=== PATIENT | female | born 1975 | race African-American/Black ===

== ENCOUNTER 2020-08-19 13:36 | Inpatient (IN) | payer OTHER ==
[2020-08-19] VITALS (7 sets, daily range): BP systolic 113–144; BP diastolic 83–98
[~2020-08-19] VITALS: Ht 177.8 cm; Wt 108.9 kg
[2020-08-19] MEDS: MORPHINE SULFATE INJ 2 MG/ML SYR IV PRN ×2 (14:52→18:39)
[2020-08-19] MEDS: SODIUM CHLORIDE 0.9% 1000ML 1,000 ML IV SCH (14:52)
[2020-08-19] MEDS: ONDANSETRON HCL INJ 2MG/ML 2ML 2 MG/ML VIAL IV PRN (14:52)
[2020-08-19] MEDS ORDERED: AMLODIPINE BESY10 MG PO (15:12)
[2020-08-19] MEDS ORDERED: ATENOLOL50 MG PO (15:12)
[2020-08-19] MEDS ORDERED: CELEXA20 MG PO (15:12)
[2020-08-19] MEDS ORDERED: CLONIDINE HCL0.1 MG PO (15:12)
[2020-08-19] MEDS ORDERED: POTASSIUM CHLORIDE 20 MEQ TAB CR PO PRN (15:15)
[2020-08-19] MEDS: PIPERACILLIN/TAZOBAC 3.375 GM in SODIUM CHLORIDE 0.9% 50ML 50 ML IV SCH (16:41)
[2020-08-19] MEDS ORDERED: PIPER-TAZ 3.375 GM 50 ML IV SCH (18:00)
[2020-08-19] MEDS ORDERED: AMLODIPINE BESYLATE 10 MG TAB PO SCH ×2 (21:00)
[2020-08-19] MEDS: AMLODIPINE BESYLATE 5 MG TAB PO SCH (22:01)
[2020-08-19] MEDS: CITALOPRAM HYDROBROMIDE 20 MG TAB PO SCH (22:01)
[2020-08-19] MEDS: CLONIDINE HCL 0.1 MG TAB PO SCH (22:01)
[2020-08-19] MEDS: ATENOLOL 50 MG TAB PO SCH (22:01)
[2020-08-19] MEDS: HEPARIN SOD (PORCINE) 5,000 UNIT/ML VIAL SC SCH (22:21)
[2020-08-20] VITALS: BP 123/77
[2020-08-20] MEDS: ONDANSETRON HCL INJ 2MG/ML 2ML 2 MG/ML VIAL IV PRN ×4 (00:08→23:11)
[2020-08-20] MEDS: SODIUM CHLORIDE 0.9% 1000ML 1,000 ML IV SCH ×2 (00:08→16:56)
[2020-08-20] MEDS: PIPERACILLIN/TAZOBAC 3.375 GM in SODIUM CHLORIDE 0.9% 50ML 50 ML IV SCH ×5 (00:08→23:56)
[2020-08-20] MEDS: MORPHINE SULFATE INJ 2 MG/ML SYR IV PRN ×4 (00:08→23:11)
[2020-08-20 04:00] VITALS: BP 125/81
[2020-08-20 05:31] LABS: BASOPHILS % 0.2 % (0.0-1.0); EOSINOPHILS # (AUTO) 0.1 (0.0-0.4); EOSINOPHILS % 0.6 % (0.0-6.0); HEMATOCRIT 34.4 % (34.2-44.1); HEMOGLOBIN 10.8 g/dL (12.0-16.0); LYMPHOCYTES # (AUTO) 1.4 (1.0-3.2); LYMPHOCYTES % 13.1 % (18.0-39.1); MEAN CORPUSCULAR HEMOGLOBIN 23.9 pg (28-32); MEAN CORPUSCULAR HGB CONC 31.4 g/dL (31-35); MEAN CORPUSCULAR VOLUME 76.3 fL (81-99); MONOCYTES # (AUTO) 1.7 (0.2-0.8); MONOCYTES % 15.6 % (4.4-11.3); NEUTROPHILS # (AUTO) 7.5 (2.1-6.9); PLATELET COUNT 397 x10e3/uL (140-360); RED BLOOD COUNT 4.51 x10e6/uL (3.6-5.1); RED CELL DISTRIBUTION WIDTH 14.4 % (11.7-14.4)
[2020-08-20 05:39] LABS: INR 1.15; PROTHROMBIN TIME 15.4 seconds (11.9-14.5)
[2020-08-20 05:49] LABS: ALANINE AMINOTRANSFERASE 16 IU/L (0-55); ALBUMIN 2.4 g/dL (3.5-5.0); ALBUMIN/GLOBULIN RATIO 0.5 (0.8-2.0); ALKALINE PHOSPHATASE 135 IU/L (40-150); ANION GAP 16.8 mmol/L (8-16); BLOOD UREA NITROGEN 11 mg/dL (7-26); BUN/CREATININE RATIO 11 (6-25); CALCIUM 7.9 mg/dL (8.4-10.2); CARBON DIOXIDE 25 mmol/L (22-29); CHLORIDE 103 mmol/L (98-107); CREATININE, SERUM 1.04 mg/dL (0.57-1.11); EST GLOMERULAR FILTRATION RATE > 60 ML/MIN (60-); GLUCOSE 114 mg/dL (74-118); SODIUM 142 mmol/L (136-145)
[2020-08-20 05:52] LABS: POTASSIUM 2.8 mmol/L (3.5-5.1)
[2020-08-20 07:46] LABS: BAND NEUTROPHILS % (MANUAL) 2 %; LYMPHOCYTES % (MANUAL) 12 % (19-48); MONOCYTES % (MANUAL) 18 % (3.4-9.0); NEUTROPHILS % (MANUAL) 68 % (40-74); PLATELET ESTIMATE ADEQUATE
[2020-08-20 07:47] LABS: PLATELET MORPHOLOGY COMMENT NORMAL; RBC MORPHOLOGY COMMENT NORMAL
[2020-08-20] MEDS: HEPARIN SOD (PORCINE) 5,000 UNIT/ML VIAL SC SCH ×2 (08:02→22:41)
[2020-08-20 08:16] VITALS: BP 122/98
[2020-08-20 08:18] VITALS: BP 122/98
[2020-08-20] MEDS ORDERED: POTASSIUM CHLORIDE 20 MEQ TAB CR PO ONE (10:15)
[2020-08-20] MEDS ORDERED: KCL 20 MEQ PACKET/ ORAL SOLN PO ONE (10:15)
[2020-08-20 16:46] VITALS: BP 122/87
[2020-08-20] MEDS: DOCUSATE SODIUM LIQD 100 MG/10 ML UDC NG SCH (16:56)
[2020-08-20] MEDS ORDERED: BISACODYL 5 MG TAB EC PO ONE ×2 (19:20→20:00)
[2020-08-20 20:00] VITALS: BP 141/90
[2020-08-20] MEDS ORDERED: CITRATE OF MAGNESIA 300ML BOTTLE PO ONE (22:00)
[2020-08-20] MEDS: CITALOPRAM HYDROBROMIDE 20 MG TAB PO SCH (22:29)
[2020-08-20] MEDS: CLONIDINE HCL 0.1 MG TAB PO SCH (22:29)
[2020-08-20] MEDS: AMLODIPINE BESYLATE 5 MG TAB PO SCH (22:29)
[2020-08-20] MEDS: ATENOLOL 50 MG TAB PO SCH (22:29)
[2020-08-20] MEDS ORDERED: BISACODYL 10 MG SUPP PR ONE (23:30)
[2020-08-21] VITALS (10 sets, daily range): BP systolic 124–152; BP diastolic 81–99
[2020-08-21] MEDS ORDERED: MAGNESIUM HYDROXIDE 30 ML UDC PO ONE (01:00)
[2020-08-21] MEDS: MORPHINE SULFATE INJ 2 MG/ML SYR IV PRN ×3 (05:15→19:50)
[2020-08-21] MEDS: ONDANSETRON HCL INJ 2MG/ML 2ML 2 MG/ML VIAL IV PRN ×2 (05:15→19:50)
[2020-08-21 05:24] LABS: BASOPHILS % 0.3 % (0.0-1.0); EOSINOPHILS % 0.3 % (0.0-6.0); HEMATOCRIT 35.3 % (34.2-44.1); HEMOGLOBIN 11.1 g/dL (12.0-16.0); LYMPHOCYTES # (AUTO) 1.3 (1.0-3.2); LYMPHOCYTES % 10.6 % (18.0-39.1); MEAN CORPUSCULAR HEMOGLOBIN 23.7 pg (28-32); MEAN CORPUSCULAR HGB CONC 31.4 g/dL (31-35); MEAN CORPUSCULAR VOLUME 75.3 fL (81-99); MONOCYTES # (AUTO) 1.3 (0.2-0.8); MONOCYTES % 10.5 % (4.4-11.3); NEUTROPHILS # (AUTO) 9.4 (2.1-6.9); NEUTROPHILS % 77.6 % (38.7-80.0); PLATELET COUNT 495 x10e3/uL (140-360); RED BLOOD COUNT 4.69 x10e6/uL (3.6-5.1); RED CELL DISTRIBUTION WIDTH 14.5 % (11.7-14.4)
[2020-08-21] MEDS: SODIUM CHLORIDE 0.9% 1000ML 1,000 ML IV SCH (06:00)
[2020-08-21] MEDS: PIPERACILLIN/TAZOBAC 3.375 GM in SODIUM CHLORIDE 0.9% 50ML 50 ML IV SCH ×3 (06:00→19:29)
[2020-08-21 06:07] LABS: ALANINE AMINOTRANSFERASE 13 IU/L (0-55); ALBUMIN 2.5 g/dL (3.5-5.0); ALBUMIN/GLOBULIN RATIO 0.5 (0.8-2.0); ALKALINE PHOSPHATASE 132 IU/L (40-150); ANION GAP 17.4 mmol/L (8-16); BLOOD UREA NITROGEN 10 mg/dL (7-26); BUN/CREATININE RATIO 10 (6-25); CALCIUM 8.3 mg/dL (8.4-10.2); CARBON DIOXIDE 24 mmol/L (22-29); CHLORIDE 100 mmol/L (98-107); CREATININE, SERUM 0.98 mg/dL (0.57-1.11); EST GLOMERULAR FILTRATION RATE > 60 ML/MIN (60-); GLUCOSE 146 mg/dL (74-118); SODIUM 139 mmol/L (136-145)
[2020-08-21 06:14] LABS: POTASSIUM 2.4 mmol/L (3.5-5.1)
[2020-08-21 06:24] LABS: % IRON SATURATION 5 % (15-50); IRON 11 ug/dL (50-170); TOTAL IRON BINDING CAPACITY 223 ug/dL (261-478); TRANSFERRIN 159 mg/dL (180-382)
[2020-08-21] MEDS ORDERED: CITRATE OF MAGNESIA 300ML BOTTLE PO ONE (07:00)
[2020-08-21] MEDS ORDERED: POTASSIUM CHLORIDE 20MEQ/100ML 300 ML IV ONE (07:45)
[2020-08-21] MEDS: DOCUSATE SODIUM LIQD 100 MG/10 ML UDC NG SCH ×2 (09:00→18:16)
[2020-08-21] MEDS: HEPARIN SOD (PORCINE) 5,000 UNIT/ML VIAL SC SCH ×2 (09:49→21:00)
[2020-08-21] MEDS ORDERED: POVIDONE IODINE 0.05% 0.05 % ML PO ONE (12:01)
[2020-08-21] MEDS ORDERED: ATROPINE SULFATE 1 MG/ML VIAL ONE (12:01)
[2020-08-21] MEDS ORDERED: PROPOFOL IV EMULSION 10 MG/ML 20 ML VIAL ONE (12:01)
[2020-08-21] MEDS ORDERED: FENTANYL CITRATE/PF 100MCG/2 ML INJ ONE (12:42)
[2020-08-21] MEDS ORDERED: MIDAZOLAM HCL 2 MG/2 ML VIAL ONE (12:42)
[2020-08-21] MEDS ORDERED: IRON SUCROSE 100 MG in SODIUM CHLORIDE 0.9% 100 ML 100 ML IV SCH ×2 (14:00→18:00)
[2020-08-21] MEDS ORDERED: ACETAMINOPHEN 325 MG TAB PO PRN (14:00)
[2020-08-21] MEDS ORDERED: METRONIDAZOLE 500MG/NS 100ML 100 ML IV STA (14:52)
[2020-08-21] MEDS ORDERED: METRONIDAZOLE 500MG/NS 100ML 100 ML IV ONE (15:11)
[2020-08-21] MEDS ORDERED: DIATRIZOATE MEGL/DIATRIZOA SOD 30 ML BTL PO ONE (15:17)
[2020-08-21] MEDS: METRONIDAZOLE 500MG/NS 100ML 100 ML IV SCH ×2 (15:29→20:58)
[2020-08-21] MEDS ORDERED: SODIUM CHLORIDE 0.9% 50ML 50 ML ONE ×3 (16:47→23:48)
[2020-08-21] MEDS ORDERED: PIPERACILLIN/TAZOBAC 3.375 GM VIAL ONE ×2 (16:47→23:47)
[2020-08-21] MEDS ORDERED: IOPAMIDOL 370 MG/ML 200 ML INFUS..BTL INJ ONE (18:27)
[2020-08-21] MEDS: AMLODIPINE BESYLATE 5 MG TAB PO SCH (20:58)
[2020-08-21] MEDS: CITALOPRAM HYDROBROMIDE 20 MG TAB PO SCH (20:58)
[2020-08-21] MEDS: CLONIDINE HCL 0.1 MG TAB PO SCH (20:58)
[2020-08-21] MEDS: ATENOLOL 50 MG TAB PO SCH (20:59)
[2020-08-22] VITALS (7 sets, daily range): BP systolic 117–141; BP diastolic 76–92
[2020-08-22] MEDS: METRONIDAZOLE 500MG/NS 100ML 100 ML IV SCH ×4 (02:58→22:22)
[2020-08-22] MEDS ORDERED: SODIUM CHLORIDE 0.9% 50ML 50 ML ONE ×2 (05:25→17:34)
[2020-08-22] MEDS ORDERED: PIPERACILLIN/TAZOBAC 3.375 GM VIAL ONE ×2 (05:26→17:29)
[2020-08-22] MEDS: PIPERACILLIN/TAZOBAC 3.375 GM in SODIUM CHLORIDE 0.9% 50ML 50 ML IV SCH ×5 (05:35→18:33)
[2020-08-22] MEDS: ONDANSETRON HCL INJ 2MG/ML 2ML 2 MG/ML VIAL IV PRN ×2 (07:20→14:47)
[2020-08-22] MEDS: MORPHINE SULFATE INJ 2 MG/ML SYR IV PRN (07:20)
[2020-08-22] MEDS: SODIUM CHLORIDE 0.9% 1000ML 1,000 ML IV SCH ×3 (08:09→17:03)
[2020-08-22] MEDS: HEPARIN SOD (PORCINE) 5,000 UNIT/ML VIAL SC SCH (09:00)
[2020-08-22] MEDS: DOCUSATE SODIUM LIQD 100 MG/10 ML UDC NG SCH ×2 (09:00→15:05)
[2020-08-22 09:11] LABS: BLOOD UREA NITROGEN 9 mg/dL (7-26); BUN/CREATININE RATIO 11 (6-25); CALCIUM 7.9 mg/dL (8.4-10.2); CARBON DIOXIDE 28 mmol/L (22-29); CHLORIDE 103 mmol/L (98-107); CREATININE, SERUM 0.79 mg/dL (0.57-1.11); EST GLOMERULAR FILTRATION RATE > 60 ML/MIN (60-); GLUCOSE 110 mg/dL (74-118); SODIUM 140 mmol/L (136-145)
[2020-08-22 09:17] LABS: BASOPHILS % 0.4 % (0.0-1.0); EOSINOPHILS # (AUTO) 0.2 (0.0-0.4); EOSINOPHILS % 1.5 % (0.0-6.0); HEMATOCRIT 33.8 % (34.2-44.1); HEMOGLOBIN 10.4 g/dL (12.0-16.0); LYMPHOCYTES # (AUTO) 1.7 (1.0-3.2); LYMPHOCYTES % 15.2 % (18.0-39.1); MEAN CORPUSCULAR HEMOGLOBIN 23.5 pg (28-32); MEAN CORPUSCULAR HGB CONC 30.8 g/dL (31-35); MEAN CORPUSCULAR VOLUME 76.5 fL (81-99); MONOCYTES # (AUTO) 1.2 (0.2-0.8); MONOCYTES % 11.1 % (4.4-11.3); NEUTROPHILS # (AUTO) 7.7 (2.1-6.9); NEUTROPHILS % 71.2 % (38.7-80.0); PLATELET COUNT 525 x10e3/uL (140-360); RED BLOOD COUNT 4.42 x10e6/uL (3.6-5.1); RED CELL DISTRIBUTION WIDTH 14.6 % (11.7-14.4)
[2020-08-22] MEDS ORDERED: LIDOCAINE HCL 2% LOCAL INJ 5 ML SDV VIAL INJ ONE (12:18)
[2020-08-22] MEDS ORDERED: ROCURONIUM BROMIDE 10 MG/ML 5ML VIAL IV ONE (12:18)
[2020-08-22] MEDS ORDERED: DEXAMETHASONE SOD PHOS INJ 4 MG/ML VIAL ONE (12:18)
[2020-08-22] MEDS ORDERED: POVIDONE IODINE 0.05% 0.05 % ML PO ONE (12:18)
[2020-08-22] MEDS ORDERED: PROPOFOL IV EMULSION 10 MG/ML 20 ML VIAL ONE (12:18)
[2020-08-22] MEDS ORDERED: CEFOXITIN SOD 1 GM VIAL ONE (12:18)
[2020-08-22] MEDS ORDERED: SEVOFLURANE INHAL SOLN 250 ML PEN BTL ONE (12:18)
[2020-08-22] MEDS ORDERED: ONDANSETRON HCL INJ 2MG/ML 2ML 2 MG/ML VIAL ONE (12:18)
[2020-08-22] MEDS ORDERED: ACETAMINOPHEN 1000 MG/100 ML 100 ML IV ONE (12:44)
[2020-08-22] MEDS ORDERED: SUGAMMADEX SODIUM 200 MG/2 ML VIAL IV ONE (12:44)
[2020-08-22] MEDS ORDERED: KETAMINE HCL INJ 50 MG/ML 10 ML VIAL ONE (12:54)
[2020-08-22] MEDS ORDERED: MORPHINE SULFATE INJ 10 MG/ML ONE (12:54)
[2020-08-22] MEDS ORDERED: FENTANYL CITRATE/PF 100MCG/2 ML INJ ONE (12:54)
[2020-08-22] MEDS ORDERED: MIDAZOLAM HCL 2 MG/2 ML VIAL ONE (12:54)
[2020-08-22] MEDS: SODIUM CHLORIDE 0.9% 250ML IRRIG IR SCH ×3 (13:15→21:13)
[2020-08-22] MEDS ORDERED: MORPHINE SULFATE INJ 2 MG/ML SYR IV PRN (14:00)
[2020-08-22] MEDS ORDERED: HYDRALAZINE HCL 20 MG/ML VIAL ONE (14:12)
[2020-08-22] MEDS: MORPHINE SULFATE INJ 4 MG/ML INJ 1ML IV PRN (14:49)
[2020-08-22] MEDS ORDERED: POTASSIUM CHLORIDE 20MEQ/100ML 100 ML IV ONE (15:45)
[2020-08-22] MEDS: AMLODIPINE BESYLATE 5 MG TAB PO SCH (21:00)
[2020-08-22] MEDS: CITALOPRAM HYDROBROMIDE 20 MG TAB PO SCH (21:00)
[2020-08-22] MEDS: ATENOLOL 50 MG TAB PO SCH (21:00)
[2020-08-22] MEDS: CLONIDINE HCL 0.1 MG TAB PO SCH (21:00)
[2020-08-22] MEDS: IRON SUCROSE 100 MG in SODIUM CHLORIDE 0.9% 100 ML 100 ML IV SCH (21:12)
[2020-08-23] VITALS (8 sets, daily range): BP systolic 108–154; BP diastolic 89–95
[2020-08-23] MEDS: PIPERACILLIN/TAZOBAC 3.375 GM in SODIUM CHLORIDE 0.9% 50ML 50 ML IV SCH ×4 (00:03→18:06)
[2020-08-23] MEDS ORDERED: SODIUM CHLORIDE 0.9% 50ML 50 ML ONE ×3 (00:14→17:38)
[2020-08-23] MEDS ORDERED: PIPERACILLIN/TAZOBAC 3.375 GM VIAL ONE ×4 (00:14→17:38)
[2020-08-23] MEDS: SODIUM CHLORIDE 0.9% 250ML IRRIG IR SCH ×6 (01:20→21:14)
[2020-08-23] MEDS: SODIUM CHLORIDE 0.9% 1000ML 1,000 ML IV SCH ×4 (02:27→22:23)
[2020-08-23] MEDS: METRONIDAZOLE 500MG/NS 100ML 100 ML IV SCH ×4 (02:27→21:15)
[2020-08-23] MEDS: ONDANSETRON HCL INJ 2MG/ML 2ML 2 MG/ML VIAL IV PRN ×2 (02:28→09:09)
[2020-08-23] MEDS: MORPHINE SULFATE INJ 4 MG/ML INJ 1ML IV PRN ×4 (02:28→19:25)
[2020-08-23 05:40] LABS: BASOPHILS % 0.2 % (0.0-1.0); HEMATOCRIT 34.2 % (34.2-44.1); HEMOGLOBIN 10.7 g/dL (12.0-16.0); LYMPHOCYTES # (AUTO) 1.1 (1.0-3.2); LYMPHOCYTES % 8.1 % (18.0-39.1); MEAN CORPUSCULAR HEMOGLOBIN 23.7 pg (28-32); MEAN CORPUSCULAR HGB CONC 31.3 g/dL (31-35); MEAN CORPUSCULAR VOLUME 75.7 fL (81-99); MONOCYTES # (AUTO) 1.2 (0.2-0.8); MONOCYTES % 8.8 % (4.4-11.3); NEUTROPHILS # (AUTO) 10.8 (2.1-6.9); NEUTROPHILS % 81.8 % (38.7-80.0); PLATELET COUNT 594 x10e3/uL (140-360); RED BLOOD COUNT 4.52 x10e6/uL (3.6-5.1); RED CELL DISTRIBUTION WIDTH 14.5 % (11.7-14.4)
[2020-08-23 06:21] LABS: ANION GAP 14.1 mmol/L (8-16); BLOOD UREA NITROGEN 8 mg/dL (7-26); BUN/CREATININE RATIO 11 (6-25); CALCIUM 7.2 mg/dL (8.4-10.2); CARBON DIOXIDE 25 mmol/L (22-29); CHLORIDE 109 mmol/L (98-107); CREATININE, SERUM 0.73 mg/dL (0.57-1.11); EST GLOMERULAR FILTRATION RATE > 60 ML/MIN (60-); GLUCOSE 109 mg/dL (74-118); POTASSIUM 3.1 mmol/L (3.5-5.1); SODIUM 145 mmol/L (136-145)
[2020-08-23] MEDS: DOCUSATE SODIUM LIQD 100 MG/10 ML UDC NG SCH ×2 (07:19→13:39)
[2020-08-23] MEDS ORDERED: BENZOCAINE 20% SPR 60 ML CAN MT PRN (09:15)
[2020-08-23] MEDS ORDERED: POTASSIUM CHLORIDE 10MEQ/100ML 100 ML IV ONE (10:00)
[2020-08-23] MEDS: CITALOPRAM HYDROBROMIDE 20 MG TAB PO SCH (21:00)
[2020-08-23] MEDS: AMLODIPINE BESYLATE 5 MG TAB PO SCH (21:00)
[2020-08-23] MEDS: CLONIDINE HCL 0.1 MG TAB PO SCH (21:00)
[2020-08-23] MEDS: ATENOLOL 50 MG TAB PO SCH (21:00)
[2020-08-23] MEDS: IRON SUCROSE 100 MG in SODIUM CHLORIDE 0.9% 100 ML 100 ML IV SCH (21:15)
[2020-08-24] VITALS (9 sets, daily range): BP systolic 140–166; BP diastolic 94–103
[2020-08-24] MEDS ORDERED: PIPERACILLIN/TAZOBAC 3.375 GM VIAL ONE ×5 (00:56→23:31)
[2020-08-24] MEDS ORDERED: SODIUM CHLORIDE 0.9% 50ML 50 ML ONE ×5 (00:57→23:32)
[2020-08-24] MEDS: PIPERACILLIN/TAZOBAC 3.375 GM in SODIUM CHLORIDE 0.9% 50ML 50 ML IV SCH ×4 (01:06→18:10)
[2020-08-24] MEDS: SODIUM CHLORIDE 0.9% 250ML IRRIG IR SCH ×6 (01:10→20:54)
[2020-08-24] MEDS: METRONIDAZOLE 500MG/NS 100ML 100 ML IV SCH ×4 (04:19→20:53)
[2020-08-24] MEDS: ONDANSETRON HCL INJ 2MG/ML 2ML 2 MG/ML VIAL IV PRN ×2 (04:32→20:11)
[2020-08-24] MEDS: MORPHINE SULFATE INJ 4 MG/ML INJ 1ML IV PRN ×4 (04:32→20:11)
[2020-08-24 05:09] LABS: BASOPHILS # (AUTO) 0.1 (0.0-0.1); BASOPHILS % 0.5 % (0.0-1.0); EOSINOPHILS # (AUTO) 0.1 (0.0-0.4); EOSINOPHILS % 0.8 % (0.0-6.0); HEMATOCRIT 32.7 % (34.2-44.1); HEMOGLOBIN 10.3 g/dL (12.0-16.0); LYMPHOCYTES # (AUTO) 1.6 (1.0-3.2); LYMPHOCYTES % 11.3 % (18.0-39.1); MEAN CORPUSCULAR HEMOGLOBIN 23.8 pg (28-32); MEAN CORPUSCULAR HGB CONC 31.5 g/dL (31-35); MEAN CORPUSCULAR VOLUME 75.7 fL (81-99); MONOCYTES # (AUTO) 1.3 (0.2-0.8); NEUTROPHILS # (AUTO) 10.7 (2.1-6.9); NEUTROPHILS % 74.4 % (38.7-80.0); PLATELET COUNT 617 x10e3/uL (140-360); RED BLOOD COUNT 4.32 x10e6/uL (3.6-5.1); RED CELL DISTRIBUTION WIDTH 14.6 % (11.7-14.4)
[2020-08-24 05:30] LABS: ANION GAP 14.9 mmol/L (8-16); BLOOD UREA NITROGEN 7 mg/dL (7-26); BUN/CREATININE RATIO 10 (6-25); CALCIUM 7.4 mg/dL (8.4-10.2); CARBON DIOXIDE 27 mmol/L (22-29); CHLORIDE 107 mmol/L (98-107); EST GLOMERULAR FILTRATION RATE > 60 ML/MIN (60-); GLUCOSE 108 mg/dL (74-118); SODIUM 146 mmol/L (136-145)
[2020-08-24 05:36] LABS: POTASSIUM 2.9 mmol/L (3.5-5.1)
[2020-08-24] MEDS: SODIUM CHLORIDE 0.9% 1000ML 1,000 ML IV SCH ×4 (06:29→20:54)
[2020-08-24] MEDS ORDERED: POTASSIUM CHLORIDE 10MEQ/100ML 100 ML INJ STA (07:32)
[2020-08-24] MEDS: DOCUSATE SODIUM LIQD 100 MG/10 ML UDC NG SCH ×2 (07:51→11:38)
[2020-08-24] MEDS ORDERED: POTASSIUM CHLORIDE 10MEQ/100ML 400 ML IV ONE (08:15)
[2020-08-24] MEDS: IRON SUCROSE 100 MG in SODIUM CHLORIDE 0.9% 100 ML 100 ML IV SCH (20:00)
[2020-08-24] MEDS: CLONIDINE HCL 0.1 MG TAB PO SCH (20:17)
[2020-08-24] MEDS: CITALOPRAM HYDROBROMIDE 20 MG TAB PO SCH (20:17)
[2020-08-24] MEDS: ATENOLOL 50 MG TAB PO SCH (20:18)
[2020-08-24] MEDS: AMLODIPINE BESYLATE 5 MG TAB PO SCH (20:18)
[2020-08-25] VITALS (8 sets, daily range): BP systolic 146–168; BP diastolic 100–106
[2020-08-25] MEDS: MORPHINE SULFATE INJ 4 MG/ML INJ 1ML IV PRN ×5 (00:17→20:00)
[2020-08-25] MEDS: SODIUM CHLORIDE 0.9% 250ML IRRIG IR SCH ×6 (00:55→21:07)
[2020-08-25] MEDS ORDERED: SODIUM CHLORIDE 0.9% 50ML 50 ML ONE ×2 (02:51→15:16)
[2020-08-25] MEDS ORDERED: PIPERACILLIN/TAZOBAC 3.375 GM VIAL ONE ×2 (02:51→15:16)
[2020-08-25] MEDS: METRONIDAZOLE 500MG/NS 100ML 100 ML IV SCH ×4 (03:00→21:00)
[2020-08-25] MEDS: PIPERACILLIN/TAZOBAC 3.375 GM in SODIUM CHLORIDE 0.9% 50ML 50 ML IV SCH ×5 (05:18→21:00)
[2020-08-25] MEDS: SODIUM CHLORIDE 0.9% 1000ML 1,000 ML IV SCH (05:31)
[2020-08-25] MEDS: HYDRALAZINE HCL 20 MG/ML VIAL IV PRN ×3 (05:32→21:08)
[2020-08-25 05:47] LABS: BASOPHILS # (AUTO) 0.1 (0.0-0.1); BASOPHILS % 0.4 % (0.0-1.0); EOSINOPHILS # (AUTO) 0.3 (0.0-0.4); EOSINOPHILS % 2.5 % (0.0-6.0); HEMATOCRIT 31.8 % (34.2-44.1); LYMPHOCYTES # (AUTO) 1.7 (1.0-3.2); LYMPHOCYTES % 12.7 % (18.0-39.1); MEAN CORPUSCULAR HEMOGLOBIN 23.8 pg (28-32); MEAN CORPUSCULAR HGB CONC 31.4 g/dL (31-35); MEAN CORPUSCULAR VOLUME 75.7 fL (81-99); MONOCYTES % 7.5 % (4.4-11.3); NEUTROPHILS # (AUTO) 9.8 (2.1-6.9); NEUTROPHILS % 73.3 % (38.7-80.0); PLATELET COUNT 567 x10e3/uL (140-360); RED CELL DISTRIBUTION WIDTH 14.7 % (11.7-14.4)
[2020-08-25 06:16] LABS: ANION GAP 12.9 mmol/L (8-16); BLOOD UREA NITROGEN 6 mg/dL (7-26); BUN/CREATININE RATIO 9 (6-25); CALCIUM 7.6 mg/dL (8.4-10.2); CARBON DIOXIDE 29 mmol/L (22-29); CHLORIDE 105 mmol/L (98-107); CREATININE, SERUM 0.64 mg/dL (0.57-1.11); EST GLOMERULAR FILTRATION RATE > 60 ML/MIN (60-); GLUCOSE 89 mg/dL (74-118); SODIUM 144 mmol/L (136-145)
[2020-08-25 06:19] LABS: POTASSIUM 2.9 mmol/L (3.5-5.1)
[2020-08-25] MEDS ORDERED: POTASSIUM CHLORIDE 20MEQ/100ML 100 ML IV SCH ×2 (08:32→10:00)
[2020-08-25] MEDS: DOCUSATE SODIUM LIQD 100 MG/10 ML UDC NG SCH ×2 (10:12→17:00)
[2020-08-25] MEDS: METOPROLOL TARTRATE INJ 1 MG/ML VIAL IV PRN (11:32)
[2020-08-25] MEDS: D5NS/KCL 20MEQ 1,000 ML IV SCH ×2 (11:44→21:06)
[2020-08-25] MEDS: IRON SUCROSE 100 MG in SODIUM CHLORIDE 0.9% 100 ML 100 ML IV SCH (20:00)
[2020-08-25] MEDS: AMLODIPINE BESYLATE 5 MG TAB PO SCH (21:00)
[2020-08-25] MEDS: CLONIDINE HCL 0.1 MG TAB PO SCH (21:00)
[2020-08-25] MEDS: ATENOLOL 50 MG TAB PO SCH (21:00)
[2020-08-25] MEDS: CITALOPRAM HYDROBROMIDE 20 MG TAB PO SCH (21:00)
[2020-08-25] MEDS: ONDANSETRON HCL INJ 2MG/ML 2ML 2 MG/ML VIAL IV PRN (21:09)
[2020-08-26] VITALS (9 sets, daily range): BP systolic 141–178; BP diastolic 92–100
[2020-08-26] MEDS: SODIUM CHLORIDE 0.9% 250ML IRRIG IR SCH ×6 (00:55→21:02)
[2020-08-26] MEDS: MORPHINE SULFATE INJ 4 MG/ML INJ 1ML IV PRN ×4 (02:22→22:03)
[2020-08-26] MEDS: METRONIDAZOLE 500MG/NS 100ML 100 ML IV SCH ×4 (03:00→21:00)
[2020-08-26] MEDS: D5NS/KCL 20MEQ 1,000 ML IV SCH ×3 (04:30→23:32)
[2020-08-26] MEDS: PIPERACILLIN/TAZOBAC 3.375 GM in SODIUM CHLORIDE 0.9% 50ML 50 ML IV SCH ×6 (05:21→23:32)
[2020-08-26 06:35] LABS: ANION GAP 9.8 mmol/L (8-16); BLOOD UREA NITROGEN < 5 mg/dL (7-26); CALCIUM 7.5 mg/dL (8.4-10.2); CARBON DIOXIDE 32 mmol/L (22-29); CHLORIDE 103 mmol/L (98-107); CREATININE, SERUM 0.64 mg/dL (0.57-1.11); EST GLOMERULAR FILTRATION RATE > 60 ML/MIN (60-); GLUCOSE 137 mg/dL (74-118); SODIUM 142 mmol/L (136-145)
[2020-08-26 06:36] LABS: BUN/CREATININE RATIO 8 (6-25)
[2020-08-26 06:38] LABS: POTASSIUM 2.8 mmol/L (3.5-5.1)
[2020-08-26] MEDS ORDERED: POTASSIUM CHLORIDE 20MEQ/100ML 200 ML IV ONE (09:45)
[2020-08-26] MEDS: DOCUSATE SODIUM LIQD 100 MG/10 ML UDC NG SCH ×2 (09:47→17:19)
[2020-08-26] MEDS ORDERED: POTASSIUM BICARBONATE/CIT AC 20 MEQ TABLET.EFF PO ONE ×2 (10:30→15:00)
[2020-08-26] MEDS: IRON SUCROSE 100 MG in SODIUM CHLORIDE 0.9% 100 ML 100 ML IV SCH (20:00)
[2020-08-26] MEDS: ATENOLOL 50 MG TAB PO SCH (21:00)
[2020-08-26] MEDS: CITALOPRAM HYDROBROMIDE 20 MG TAB PO SCH (21:00)
[2020-08-26] MEDS: AMLODIPINE BESYLATE 5 MG TAB PO SCH (21:00)
[2020-08-26] MEDS: CLONIDINE HCL 0.1 MG TAB PO SCH (21:00)
[2020-08-26] MEDS: HYDRALAZINE HCL 20 MG/ML VIAL IV PRN (21:03)
[2020-08-27] VITALS (8 sets, daily range): BP systolic 158–170; BP diastolic 96–107
[2020-08-27] MEDS: SODIUM CHLORIDE 0.9% 250ML IRRIG IR SCH ×3 (01:05→09:15)
[2020-08-27] MEDS: MORPHINE SULFATE INJ 4 MG/ML INJ 1ML IV PRN ×3 (01:15→11:31)
[2020-08-27] MEDS: METRONIDAZOLE 500MG/NS 100ML 100 ML IV SCH ×4 (03:00→21:53)
[2020-08-27 05:09] LABS: BASOPHILS # (AUTO) 0.1 (0.0-0.1); BASOPHILS % 0.4 % (0.0-1.0); EOSINOPHILS # (AUTO) 0.4 (0.0-0.4); EOSINOPHILS % 2.5 % (0.0-6.0); HEMATOCRIT 34.5 % (34.2-44.1); HEMOGLOBIN 10.8 g/dL (12.0-16.0); LYMPHOCYTES # (AUTO) 1.9 (1.0-3.2); LYMPHOCYTES % 13.5 % (18.0-39.1); MEAN CORPUSCULAR HEMOGLOBIN 23.9 pg (28-32); MEAN CORPUSCULAR HGB CONC 31.3 g/dL (31-35); MEAN CORPUSCULAR VOLUME 76.5 fL (81-99); MONOCYTES # (AUTO) 1.1 (0.2-0.8); MONOCYTES % 8.2 % (4.4-11.3); NEUTROPHILS # (AUTO) 9.9 (2.1-6.9); NEUTROPHILS % 72.2 % (38.7-80.0); PLATELET COUNT 582 x10e3/uL (140-360); RED BLOOD COUNT 4.51 x10e6/uL (3.6-5.1); RED CELL DISTRIBUTION WIDTH 14.5 % (11.7-14.4)
[2020-08-27 05:23] LABS: CALCIUM 7.6 mg/dL (8.4-10.2); CARBON DIOXIDE 30 mmol/L (22-29); CHLORIDE 103 mmol/L (98-107); CREATININE, SERUM 0.63 mg/dL (0.57-1.11); EST GLOMERULAR FILTRATION RATE > 60 ML/MIN (60-); GLUCOSE 141 mg/dL (74-118); SODIUM 142 mmol/L (136-145)
[2020-08-27] MEDS: PIPERACILLIN/TAZOBAC 3.375 GM in SODIUM CHLORIDE 0.9% 50ML 50 ML IV SCH ×3 (05:41→17:00)
[2020-08-27 05:56] LABS: BUN/CREATININE RATIO 8 (6-25)
[2020-08-27 06:02] LABS: BLOOD UREA NITROGEN < 5 mg/dL (7-26)
[2020-08-27] MEDS: DOCUSATE SODIUM LIQD 100 MG/10 ML UDC NG SCH ×2 (08:57→17:00)
[2020-08-27] MEDS ORDERED: POTASSIUM CHLORIDE 20 MEQ TAB CR PO ONE (09:00)
[2020-08-27] MEDS: D5NS/KCL 20MEQ 1,000 ML IV SCH (10:30)
[2020-08-27] MEDS: ONDANSETRON HCL INJ 2MG/ML 2ML 2 MG/ML VIAL IV PRN (11:30)
[2020-08-27] MEDS: HYDRALAZINE HCL 20 MG/ML VIAL IV PRN (15:41)
[2020-08-27] MEDS: ACETAMINOPHEN/CODEINE 300MG - 30MG TAB PO PRN (17:56)
[2020-08-27] MEDS: IRON SUCROSE 100 MG in SODIUM CHLORIDE 0.9% 100 ML 100 ML IV SCH (20:51)
[2020-08-27] MEDS: AMLODIPINE BESYLATE 5 MG TAB PO SCH (21:54)
[2020-08-27] MEDS: CITALOPRAM HYDROBROMIDE 20 MG TAB PO SCH (21:54)
[2020-08-27] MEDS: CLONIDINE HCL 0.1 MG TAB PO SCH (21:54)
[2020-08-27] MEDS: ATENOLOL 50 MG TAB PO SCH (21:55)
[2020-08-28] VITALS (7 sets, daily range): BP systolic 152–169; BP diastolic 99–108
[2020-08-28] MEDS: PIPERACILLIN/TAZOBAC 3.375 GM in SODIUM CHLORIDE 0.9% 50ML 50 ML IV SCH ×5 (00:43→23:21)
[2020-08-28] MEDS: METRONIDAZOLE 500MG/NS 100ML 100 ML IV SCH ×4 (03:41→21:29)
[2020-08-28] MEDS: ACETAMINOPHEN/CODEINE 300MG - 30MG TAB PO PRN ×4 (03:42→23:22)
[2020-08-28] MEDS: D5NS/KCL 20MEQ 1,000 ML IV SCH ×4 (04:15→23:21)
[2020-08-28 05:41] LABS: BLOOD UREA NITROGEN < 5 mg/dL (7-26); CALCIUM 7.6 mg/dL (8.4-10.2); CARBON DIOXIDE 30 mmol/L (22-29); CHLORIDE 105 mmol/L (98-107); CREATININE, SERUM 0.65 mg/dL (0.57-1.11); EST GLOMERULAR FILTRATION RATE > 60 ML/MIN (60-); GLUCOSE 113 mg/dL (74-118); SODIUM 144 mmol/L (136-145)
[2020-08-28 05:42] LABS: BUN/CREATININE RATIO 8 (6-25)
[2020-08-28] MEDS: DOCUSATE SODIUM LIQD 100 MG/10 ML UDC NG SCH ×2 (08:09→16:57)
[2020-08-28] MEDS: HYDRALAZINE HCL 20 MG/ML VIAL IV PRN ×2 (12:08→16:58)
[2020-08-28] MEDS: METOPROLOL TARTRATE INJ 1 MG/ML VIAL IV PRN (14:59)
[2020-08-28] MEDS ORDERED: POTASSIUM CHLORIDE 10MEQ EA PO ONE (15:30)
[2020-08-28] MEDS: IRON SUCROSE 100 MG in SODIUM CHLORIDE 0.9% 100 ML 100 ML IV SCH (20:37)
[2020-08-28] MEDS: AMLODIPINE BESYLATE 5 MG TAB PO SCH (21:30)
[2020-08-28] MEDS: CLONIDINE HCL 0.1 MG TAB PO SCH (21:30)
[2020-08-28] MEDS: CITALOPRAM HYDROBROMIDE 20 MG TAB PO SCH (21:30)
[2020-08-28] MEDS: HEPARIN SOD (PORCINE) 5,000 UNIT/ML VIAL SC SCH (21:31)
[2020-08-28] MEDS: ATENOLOL 50 MG TAB PO SCH (21:31)
[2020-08-29] VITALS: BP 147/111
[2020-08-29] MEDS: METRONIDAZOLE 500MG/NS 100ML 100 ML IV SCH ×3 (02:54→15:20)
[2020-08-29 04:00] VITALS: BP 156/94
[2020-08-29] MEDS: PIPERACILLIN/TAZOBAC 3.375 GM in SODIUM CHLORIDE 0.9% 50ML 50 ML IV SCH ×2 (05:04→11:49)
[2020-08-29] MEDS: ACETAMINOPHEN/CODEINE 300MG - 30MG TAB PO PRN ×2 (05:05→11:49)
[2020-08-29 06:18] LABS: BASOPHILS % 0.4 % (0.0-1.0); EOSINOPHILS # (AUTO) 0.4 (0.0-0.4); EOSINOPHILS % 3.6 % (0.0-6.0); HEMATOCRIT 32.6 % (34.2-44.1); HEMOGLOBIN 10.2 g/dL (12.0-16.0); LYMPHOCYTES # (AUTO) 1.8 (1.0-3.2); LYMPHOCYTES % 17.9 % (18.0-39.1); MEAN CORPUSCULAR HEMOGLOBIN 23.8 pg (28-32); MEAN CORPUSCULAR HGB CONC 31.3 g/dL (31-35); MEAN CORPUSCULAR VOLUME 76.2 fL (81-99); MONOCYTES # (AUTO) 0.9 (0.2-0.8); MONOCYTES % 9.2 % (4.4-11.3); NEUTROPHILS # (AUTO) 6.7 (2.1-6.9); NEUTROPHILS % 67.1 % (38.7-80.0); PLATELET COUNT 525 x10e3/uL (140-360); RED BLOOD COUNT 4.28 x10e6/uL (3.6-5.1); RED CELL DISTRIBUTION WIDTH 15.8 % (11.7-14.4)
[2020-08-29 06:42] LABS: ANION GAP 11.4 mmol/L (8-16); BLOOD UREA NITROGEN < 5 mg/dL (7-26); CALCIUM 7.6 mg/dL (8.4-10.2); CARBON DIOXIDE 27 mmol/L (22-29); CHLORIDE 106 mmol/L (98-107); CREATININE, SERUM 0.66 mg/dL (0.57-1.11); EST GLOMERULAR FILTRATION RATE > 60 ML/MIN (60-); GLUCOSE 107 mg/dL (74-118); POTASSIUM 3.4 mmol/L (3.5-5.1); SODIUM 141 mmol/L (136-145)
[2020-08-29 06:43] LABS: BUN/CREATININE RATIO 8 (6-25)
[2020-08-29 07:44] VITALS: BP 146/101
[2020-08-29] MEDS ORDERED: POTASSIUM BICARBONATE/CIT AC 20 MEQ TABLET.EFF PO ONE (08:35)
[2020-08-29] MEDS: DOCUSATE SODIUM LIQD 100 MG/10 ML UDC NG SCH (09:00)
[2020-08-29 09:07] VITALS: BP 146/101
[2020-08-29] MEDS: HEPARIN SOD (PORCINE) 5,000 UNIT/ML VIAL SC SCH (09:45)
[2020-08-29 11:44] VITALS: BP 140/92
[2020-08-29] MEDS: D5NS/KCL 20MEQ 1,000 ML IV SCH (14:25)
[2020-08-29 15:24] VITALS: BP 157/101
[2020-08-29] MEDS ORDERED: TYLENOL # 31 EA PO ×3 (16:35→22:59)
[2020-08-29] MEDS ORDERED: FLAGYL500 MG PO (16:35)
== END 2020-08-29 18:16 | disposition home or self-care (01) | DRG 329 ==
LOC: MED/SURG2 13:36 → MED/SURG 08-21 15:15
PROVIDERS: ADMIT Internal Medicine; ATTEND Internal Medicine
PROC: 0DBN8ZX Excision of Sigmoid Colon, Via Natural or Artificial Opening Endoscopic, Diagnostic (ICD-10-PCS; 2020-08-21)
PROC: 0DTG0ZZ Resection of Left Large Intestine, Open Approach (ICD-10-PCS; principal; 2020-08-21 14:02)
PROC: 0DTN0ZZ Resection of Sigmoid Colon, Open Approach (ICD-10-PCS; 2020-08-22)
PROC: 0D1M074 Bypass Descending Colon to Cutaneous with Autologous Tissue Substitute, Open Approach (ICD-10-PCS; 2020-08-22)
DX: K56.691 Other complete intestinal obstruction (principal); K63.1 Perforation of intestine (nontraumatic); K63.0 Abscess of intestine; Z20.822 Contact with and (suspected) exposure to COVID-19
CPT/HCPCS: 36415; 45378; 71045; 74018; 74177; 80048; 80053; 82378; 82607; 82746; 83540; 83735; 84132; 84466; 85025; 85045; 85610; 86850; 86900; 86920; 87071; 87075; 87186; 87205; 88305; 88307; 96361; 97139; 99251; J0360; J0461; J0694; J1100; J1644; J1756; J2001; J2250; J2270; J2405; J2543; J3010; J3480; J7030; Q9967